=== PATIENT | female | born 1990 ===

== ENCOUNTER 2025-09-23 12:29 | Emergency (ER) | payer OTHER, SELFPAY ==
[2025-09-23 12:33] VITALS: BP 118/76
--- NOTE | 2025-09-23 15:38 | ED.GENMED ---
History of Present Illness
<SCAR Laureano - Last Filed: 09/24/25 10:40>
General
Chief Complaint: Swelling
Source: patient
Exam Limitations: none
Time Seen by Provider: 09/23/25 15:37
Nursing documentation reviewed up to this point in time: agreed with
History of Present Illness
History of Present Illness:
Patient is a 35-year-old female with history of lymphoma(10 yrs ago ) presents to the ER for evaluation. Patient complains of swelling and discomfort to the left side of her neck since Friday (3 d AGO), She did have an MRI with contrast done
Friday ( of her brain ) to evaluate headaches. This was ordered by her family doctor.
She denies any actual fever or chills she denies feeling a sore throat, URI symptoms. She denies any injury or upper extremity swelling. Denies any shortness of breath.
Phy Exam
<SCAR Laureano - Last Filed: 09/24/25 10:40>
General Physical Exam
General Presentation: no apparent distress
General age: appears stated age
General Skin: warm and dry
General Habitus: normal
General Mental: alert
General Hydration: appears well hydrated
ENT Exam
ENT Exam: EOMI, pharynx normal, neck supple and other (tender to left lateral neck ; no obvious swelling )
Eye Exam
Eye Exam General: PERRL: bilateral and EOM intact: bilateral
Pupil Exam: Bilateral: round and reactive
Neurological Exam
Neurological Exam: alert and oriented x3
Musculoskeletal Exam
Musculoskeletal Exam: full ROM and other (No obvious swelling to neck full range of motion)
Skin Exam
Skin Exam: normal color and warm/dry
Psychiatric Exam
Psychiatric Exam: normal mood/affect
Course
<SCAR Laureano - Last Filed: 09/24/25 10:40>
Orders/Labs/Results
Orders:
Orders
09/23/25 15:49
CT Neck With Iv Contrast Urgent
Comment:
Reason For Exam: swelling/pain to left lateral neck hx of lymphoma
IV Insert/Care/Rem.- Treatment PRN
09/23/25 15:59
Comprehensive Metabolic Panel Urgent
HCG, Serum Qualitative Screen Urgent
09/23/25 16:00
Complete Blood Count/With Diff Urgent
09/23/25 17:11
Add On- LAB Urgent
Tests Added?: HCG qualitative
09/23/25 20:20
Venous Doppler Upr Ext Left [US Periph Venous UPPER Ext LT] Urgent
Comment:
Reason For Exam: NECK SWELLING EVAL FOR DVT
09/23/25 23:05
Apixaban [Eliquis] 2.5 mg PO ONCE ONE
Abnormal Lab Results
09/23/25
16:00
Absolute Lymphs (auto) 4.1 H 10^3/uL
(1.2-3.4)
Absolute Monos (auto) 0.7 H 10^3/uL
(0.1-0.6)
09/23/25 16:00
09/23/25 15:59
Vital Signs
Initial and Last Documented VS:
Initial Vital Signs
Temp Pulse Resp BP Pulse Ox
98.2 F 91 18 118/76 100
09/23/25 12:33 09/23/25 12:33 09/23/25 12:33 09/23/25 12:33 09/23/25 12:33
Last Documented Vital Signs
Temp Pulse Resp BP Pulse Ox
98.2 F 78 18 112/68 99
09/23/25 12:33 09/23/25 20:42 09/23/25 20:42 09/23/25 20:42 09/23/25 20:42
<Victor Hugo Christine Jr., PA-C - Last Filed: 09/23/25 23:08>
Orders/Labs/Results
Orders:
Orders
09/23/25 15:49
CT Neck With Iv Contrast Urgent
Comment:
Reason For Exam: swelling/pain to left lateral neck hx of lymphoma
IV Insert/Care/Rem.- Treatment PRN
09/23/25 15:59
Comprehensive Metabolic Panel Urgent
HCG, Serum Qualitative Screen Urgent
09/23/25 16:00
Complete Blood Count/With Diff Urgent
09/23/25 17:11
Add On- LAB Urgent
Tests Added?: HCG qualitative
09/23/25 20:20
Venous Doppler Upr Ext Left [US Periph Venous UPPER Ext LT] Urgent
Comment:
Reason For Exam: NECK SWELLING EVAL FOR DVT
09/23/25 23:05
Apixaban [Eliquis] 2.5 mg PO ONCE ONE
Abnormal Lab Results
09/23/25
16:00
Absolute Lymphs (auto) 4.1 H 10^3/uL
(1.2-3.4)
Absolute Monos (auto) 0.7 H 10^3/uL
(0.1-0.6)
09/23/25 16:00
09/23/25 15:59
Vital Signs
Initial and Last Documented VS:
Initial Vital Signs
Temp Pulse Resp BP Pulse Ox
98.2 F 91 18 118/76 100
09/23/25 12:33 09/23/25 12:33 09/23/25 12:33 09/23/25 12:33 09/23/25 12:33
Last Documented Vital Signs
Temp Pulse Resp BP Pulse Ox
98.2 F 78 18 112/68 99
09/23/25 12:33 09/23/25 20:42 09/23/25 20:42 09/23/25 20:42 09/23/25 20:42
<SCAR Laureano - Last Filed: 09/24/25 10:40>
MDM/Problems Addressed
MDM/Problems Addressed:
Patient presents for evaluation of left lateral neck swelling for the past several days. She does have a history lymphoma 10 years ago. She recently has had headaches and had an MRI of the brain done the day prior to the swelling starting. She
presents awake alert no acute distress no obvious swelling to neck mildly tender to left lateral neck region. CAT scan with contrast was done which shows heterogeneous density within the left subclavian vein likely mixing of contrast with
unopacified blood given the clinical history of lateral neck swelling radiology does recommend ultrasound to rule out DVT. Will obtain ultrasound of the left upper extremity plan for discharge home if negative will consult patient follow-up.
<SCAR Laureano - Last Filed: 09/24/25 10:40>
*Pulse Oximetry
SaO2: 100
Oxygen Mode of Delivery: Room air
<Victor Hugo Christine Jr., PA-C - Last Filed: 09/23/25 23:08>
*Pulse Oximetry
Patient hypoxic: no (99)
*Critical Care Note
Total Time (30-74mins, 75-104mins- exclusive of procedures): Not Applicable
<Victor Hugo Christine Jr., PA-C - Last Filed: 09/23/25 23:08>
Update Note
Update Note:
Patient ultrasound showing nonocclusive clot to the basilic vein. Case was discussed with hematology recommending Eliquis twice daily for the next 6 weeks. She was advised of this information advised for close outpatient follow-up. Return
precautions given. Started on Eliquis here.
ED Attending Note
<SCAR Laureano - Last Filed: 09/24/25 10:40>
-
Portions of this chart may have been created with voice recognition software.� Occasional wrong word or��sound alike� substitutions may have occurred due to the inherent limitations of voice recognition software.
Discharge Plan
Departure
Patient Disposition: Home (Routine Discharge)
Date of Disposition: 09/23/25
Time of Disposition: 23:05
Patient with high blood pressure during this ER visit?: No
Condition: Good
Covid-19: Not Applicable
Discharge Problem:
Arm DVT (deep venous thromboembolism), acute
Instructions: Deep vein thrombosis (blood clot in the arm)
Prescriptions:
New
Eliquis 2.5 mg tablet
2.5 mg PO BID 30 Days Qty: 60 0RF
Referrals:
Colette Knox MD [Active, Hematology / Oncology] - Follow up in 5-7 days
UNKNOWN - PT NOT,INTERVIEWE [Family Provider]
Activity Restrictions/Additional Instructions:
You came to the emergency department today with concerns of symptoms of your neck. You are found to have a blood clot of your left arm. Please take Eliquis 2.5 mg twice daily over the next 6 weeks and follow-up closely with hematology. Return for
any worsening, new or concerning symptoms.
Interventions
Interventions:
*Risk Screen - Suicide Last Done: 09/23/25 12:33
*General Assessment Last Done: 09/23/25 12:33
*Neglect/Abuse Screening Last Done: 09/23/25 12:33
*ED- Fall Risk Assessment Last Done: 09/23/25 12:33
*ED COVID-19 Vaccine History Last Done: 09/23/25 12:33
*ED Influenza Vaccine History Last Done: 09/23/25 12:33
*Nursing Disposition Last Done: 09/23/25 23:17
ED- Cardiac Assessment Last Done: 09/23/25 17:35
ED- Pulmonary Assessment Last Done: 09/23/25 17:35
ED-Skin Assessment Last Done: 09/23/25 17:35
Discharge Date and Time
Discharge Date/Time: 09/23/25 23:19
Print Language: Ukranian
[2025-09-23 16:09] LABS: Hematocrit 40.8 % (37.0-47.0); Hemoglobin 14.5 g/dL (12.0-16.0); Mean Corp Hgb Conc. 35.5 g/dL (33.0-37.0); Mean Corpuscular Volume 87.2 fL (81.0-99.0); Nucleated Red Blood Cells % 0 %; Platelet Count 334 10^3/uL (130-400); Red Cell Dist. Width 12.0 % (11.5-14.5)
[2025-09-23 16:44] LABS: ALT (SGPT) 21 U/L (0-35); AST (SGOT) 18 U/L (14-36); Albumin 4.8 g/dl (3.5-5.0); Alkaline Phosphatase 51 U/L (38-126); Blood Urea Nitrogen 12 mg/dl (7-17); Calcium 9.7 mg/dl (8.4-10.2); Carbon Dioxide 27 mmol/L (22-30); Chloride 103 mmol/L (98-107); Glucose 92 mg/dl (70-99); Potassium 4.1 mmol/L (3.5-5.1); Sodium 137 mmol/L (135-145); Total Protein 7.9 g/dl (6.3-8.2); eGFR > 60.00
[2025-09-23 17:42] LABS: HCG, Serum Qualitative Screen Negative
[2025-09-23 20:42] VITALS: BP 112/68
[2025-09-23] MEDS: ELIQUIS 2.5 MG PO (23:10)
== END 2025-09-23 23:19 | disposition home or self-care (01) ==
LOC: EMR 12:29
PROVIDERS: Nurse Practitioner; EMERGENCY PHYSICIAN Emergency Medicine
DX: I82.622 Acute embolism and thrombosis of deep veins of left upper extremity (principal); Z79.01 Long term (current) use of anticoagulants; Z85.72 Personal history of non-Hodgkin lymphomas
CPT/HCPCS: 99284; 70491; 80053; 84703; 85025; 93971; Q9967